=== PATIENT | female | born 1965 | race Caucasian/White ===

== ENCOUNTER → 2021-12-21 | Outpatient (CLI) | payer OTHER ==
[~2021-12-21] VITALS: Ht 162.6 cm; Wt 72.6 kg
[~2021-12-21] MED LIST: ACETAMINOPHEN 500 MG TAB PO ONE; SODIUM CHLORIDE 0.9% 1,000 ML IV ONE; [UNRECOGNIZED DRUG - OTHER] IV ONE
[2021-12-21 11:50] VITALS: BP 114/43
[2021-12-21 12:30] VITALS: BP 110/73
[2021-12-21 12:45] VITALS: BP 117/66
[2021-12-21 13:15] VITALS: BP 118/69
[2021-12-21 13:45] VITALS: BP 102/68
[2021-12-21 15:17] VITALS: BP 120/76
== END | disposition home or self-care (01) ==
LOC: EDBD → ER 11:30
PROVIDERS: ATTEND Internal Medicine
DX: U07.1 COVID-19 (principal); I95.9 Hypotension, unspecified
CPT/HCPCS: 96360; J7030; M0247; Q0247